=== PATIENT | male | born 1985 | race Caucasian/White ===

== ENCOUNTER 2022-10-20 06:18 | Emergency (ER) | payer BC, SELFPAY ==
[2022-10-20 06:24] VITALS: PULSE 77; RESP 18; TEMP 35.9; O2SAT 98
[2022-10-20 06:42] VITALS: BP 201/129
--- NOTE | 2022-10-20 07:01 | ED_ITS ---
HPI - General Adult General Chief complaint: GI Bleed Stated complaint: Rectal bleeding Time Seen by Provider: 10/20/22 06:38 Source: patient and family Mode of arrival: ambulatory Limitations: no limitations History of Present Illness HPI narrative: 36-year-old man with a history of significant anxiety and hypertension presents to the emergency department for evaluation of bright red blood in stools. Patient reports that 3 days ago he had been feeling a little constipated and had to strain with a bowel movement. When he went to [facility], he noted that there was some blood on the paper in a couple of drops into the stool. There was no persistent bleeding after that. He when on over the weekend to have several normal nonbloody containing bowel movements. To help combat the constipation, he increased his fiber intake. He does not take any stool softeners. Last night, he felt the urge to have a bowel movement, suspected it would be loose stool. When he had his loose stool, there was some blood around the outside of the stool, bright red blood in the bowl and blood when wiping. It was not pure blood it was mixed with stool material. He had a couple of these episodes overnight as well. There is no pain. He does not take any blood thinners. There is no lightheaded, dizziness, no history of anemia. There was no trauma nor injury. No dysuria, no prior history of GI surgeries. He has never had a colonoscopy. He does have a family history of diverticulosis in his mother and also a family history of colon polyps in his grandfather in his 70s. No joe GI cancers. He has not tried any measures to help improve his symptoms. He reports that he otherwise gets steady, regular primary care through the [facility]. He admits to significant anxiety and initially refused to have his blood pressure taken, I did ask the nurse to go back in and have this done prior to my seeing the patient, as I would need to know if he was hypotensive in the setting of a GI bleed. Past medical history is notable for hypertension and anxiety. His only home medication is lisinopril. No allergies. Denies prior surgeries. Family history notable for the diverticulosis and polyps as above, social history is negative for marijuana, alcohol or tobacco. ROS is notable for the GI symptoms as above only, otherwise denies times 12 systems. Related Data Home Medications Medication Instructions Recorded Confirmed lisinopril 30 mg tablet 30 mg PO DAILY 10/20/22 10/20/22 Allergies Allergy/AdvReac Type Severity Reaction Status Date / Time No Known Drug Allergies Allergy Verified 10/20/22 06:27 [facility] Social History Smoking Status: Unknown if ever smoked How often do you have a drink containing alcohol: never AUDIT-C Alcohol total score: 0 Non-prescribed substance use: denies use Exam Const: Vital Signs, click to edit/add: Vital Signs - 24 hr 10/20/22 06:24 10/20/22 06:42 Temperature 96.6 F L Pulse Rate [Right Pulse Oximeter] 77 Respiratory Rate 18 Blood Pressure [Ri ght Upper Arm] 201/129 H Pulse Oximetry 98 Oxygen Delivery Me thod Room Air Documenting provider has reviewed patient's vital signs: yes Common normals: healthy appearing and alert Orientation/consciousness: Yes awake Other: Anxious but redirectable. Good historian. He does bring his mother to the visit. HENMT: Common normals: normocephalic and head/scalp atraumatic Head and scalp: normocephalic and atraumatic Face and sinus: normal facial exam Mouth: oral and palatal mucosa normal Throat: posterior oropharynx normal Eye: Common normals: conjunctivae normal General eye: normal appearance of both eyes Conjunctiva: conjunctiva(e) normal Neck & C-Spine: Common normals: full ROM and no lymphadenopathy Resp: Common normals: normal respiratory effort, no use of accessory muscles and clear to auscultation bilaterally Effort & inspection: able to speak in complete sentences Auscultation: clear to auscultation bilaterally Cardio: Common normals: regular rate, regular rhythm, S1 normal heart sound and S2 normal heart sound Rate: regular rate Rhythm: regular rhythm Heart sounds: S1 normal and S2 normal GI: Common normals: Normal to inspection, nondistended, normoactive bowel sounds present, soft to palpation, non-tender, no hepatosplenomegaly and no masses Palpation: soft and no hepatosplenomegaly Rectal Exam - Male: visual inspection normal, normal sphincter tone and prostate normal Other: There is some dark red blood present in the rectal vault, no stool currently. No masses. No signs of any ulceration. I do guaiac the stool and it is expectedly positive. Extremity: Common normals: normal to inspection and normal capillary refill Neuro: Sensorium/orientation: awake and alert Speech: speech normal Motor exam: no tremor noted and no movement abnormalities noted Psych: Attitude: engaged Activity/motor behavior: appropriate eye contact Mood and affect: anxious Insight: insight good Judgement: judgment good Skin: Common normals: no rashes or lesions noted General skin exam: no rashes or lesions noted Course Vital Signs Vital signs: Initial Vital Signs Temperature 96.6 F L 10/20/22 06:24 Temperature Source Temporal Artery Scan 10/20/22 06:24 Pulse Rate 77 10/20/22 06:24 Pulse Rhythm 10/20/22 06:24 Respiratory Rate 18 10/20/22 06:24 Pulse Oximetry 98 10/20/22 06:24 Oxygen Delivery Method 10/20/22 06:24 Vital Signs Temperature 96.6 F L 10/20/22 06:24 Pulse Rate 77 10/20/22 06:24 Respiratory Rate 18 10/20/22 06:24 Pulse Oximetry 98 10/20/22 06:24 Oxygen Delivery Method 10/20/22 06:24 Temperature 96.6 F L 10/20/22 06:24 Pulse Rate 77 10/20/22 06:24 Respiratory Rate 18 10/20/22 06:24 Blood Pressure 201/129 H 10/20/22 06:42 Pulse Oximetry 98 10/20/22 06:24 Oxygen Delivery Method 10/20/22 06:24 Medical Decision Making MDM Narrative Medical decision making narrative: Differential diagnosis is wide including cancer, polyps, ulceration, inflammatory bowel disease, infection, colitis. Most likely diagnosis though is a diverticular bleed. There are no red flags like fever, tenderness, hypotension. CT scan will not likely yield etiology and does risk radiation. I recommended basic labs to look at his hemoglobin, platelet counts, white count, inflammatory marker, basic metabolic panel and INR. I expect these to be normal. Counseled patient that he needs a colonoscopy. This should be arranged within a few weeks. Will reassess when labs are back. Update: Reassess patient, he still had no further stools during his stay here. Continues to be pain-free. We reviewed plan of care, alarm symptoms. Colonoscopy is ordered. He will be contacted to schedule this outpatient. He is more than welcome to schedule this with his primary care team and clinic as well. He will need to coordinate this through his primary care provider. All questions answered. Lab Data Lab results reviewed: Yes I reviewed the patient's lab results Labs: Lab Results 10/20/22 10/20/22 10/20/22 Range/Units 07:10 07:10 07:10 WBC 6.18 (4.50-11.00) K/uL RBC 5.19 (4.30-5.90) m/uL Hgb 14.8 (13.5-17.5) gm/dL Hct 44.0 (37.0-53.0) % MCV 85 (80-100) fL MCH 29 (26-34) pg MCHC 34 (32-36) gm/dL RDW Coeff of Mitchell 11.9 (11.5-15.5) % Plt Count 266 (140-440) K/uL Neut % (Auto) 56.6 (42.0-72.0) % Lymph % (Auto) 31.2 (20-44) % Scott % (Auto) 8.3 (0.0-11.0) % Eos % (Auto) 3.2 (0.0-7.0) % Baso % (Auto) 0.5 (0.0-3.0) % Neut # (Auto) 3.50 (1.7-7.0) K/uL Lymph # (Auto) 1.93 (0.90-2.90) K/uL Scott # (Auto) 0.50 (0.00-0.90) K/UL Eos # (Auto) 0.20 (0.00-0.50) K/uL Baso # (Auto) 0.03 (0.00-0.30) K/uL INR 0.99 (0.91-1.10) Sodium 141 (135-149) mmol/L Potassium 3.3 L (3.6-5.1) mmol/L Chloride 103 (96-114) mmol/L Carbon Dioxide 30 (20-32) mmol/L BUN 11 (5-24) mg/dL Creatinine 0.8 (0.5-1.5) mg/dL Estimated GFR 119 ml/min Glucose 110 (60-115) mg/dL Calcium 9.1 (8.4-10.6) mg/dL C-Reactive Protein (0.5-1.0) mg/dL 10/20/22 Range/Units 07:10 WBC (4.50-11.00) K/uL RBC (4.30-5.90) m/uL Hgb (13.5-17.5) gm/dL Hct (37.0-53.0) % MCV (80-100) fL MCH (26-34) pg MCHC (32-36) gm/dL RDW Coeff of Mitchell (11.5-15.5) % Plt Count (140-440) K/uL Neut % (Auto) (42.0-72.0) % Lymph % (Auto) (20-44) % Scott % (Auto) (0.0-11.0) % Eos % (Auto) (0.0-7.0) % Baso % (Auto) (0.0-3.0) % Neut # (Auto) (1.7-7.0) K/uL Lymph # (Auto) (0.90-2.90) K/uL Scott # (Auto) (0.00-0.90) K/UL Eos # (Auto) (0.00-0.50) K/uL Baso # (Auto) (0.00-0.30) K/uL INR (0.91-1.10) Sodium (135-149) mmol/L Potassium (3.6-5.1) mmol/L Chloride (96-114) mmol/L Carbon Dioxide (20-32) mmol/L BUN (5-24) mg/dL Creatinine (0.5-1.5) mg/dL Estimated GFR ml/min Glucose (60-115) mg/dL Calcium (8.4-10.6) mg/dL C-Reactive Protein 2.9 H (0.5-1.0) mg/dL Discharge Plan Discharge Clinical Impression: Diverticular hemorrhage Patient Disposition: Home w/ Parent or Adult Condition: Improved Instructions: Rectal Bleeding (ED) Additional Instructions: Your story is most suspicious for a diverticular bleed. This is a common, benign condition. The only way to tell for sure is to perform a colonoscopy. This will rule out ulcers, polyps, inflammatory condition and tumors. I have placed an order for this. If you prefer, this can be done through your primary health system. He would need to call your primary care doctor for a referral. It is best done within a few weeks rather than immediately, as most of the time the bleeding does cease on its own within a few days. I would like for you to start taking a stool softener. The best choice for you is an [id number] product called Colace. It is also sold as docusate. Avoid laxatives. I would like for you to take the stool softener 1 tablet or capsule twice daily for the next week. This will reduce any straining with bowel movements. Try to pay attention to the blood in your stools. Be mindful that blood that is just a few drops into the bowl or coating the outside of the stool or just on the toilet paper is a much better prognosis than heavy blood clots or maroon stools with no fecal matter mixed in. If you start to get significantly dizzy, lightheaded or weak in the setting of your bloody stools, please come back to the emergency department. Your blood work today is reassuring. Your blood clotting cells all seem to work normally. You may resume all normal activities. I do encourage you to continue a high-fiber diet. Activity Level: No Restrictions Discharge Diet: Regular Prescriptions: No Action lisinopril 30 mg tablet 30 mg PO DAILY Stand Alone Forms: [employer] Info Instructions
--- NOTE | 2022-10-20 07:13 | ED.NURSE ---
report received, care taken over. pt resting in bed, no complaints.
[2022-10-20 07:17] LABS: Basophils Absolute Auto 0.03 K/uL (0.00-0.30); Basophils Percent Auto 0.5 % (0.0-3.0); Eosinophils Percent Auto 3.2 % (0.0-7.0); Hemoglobin* 14.8 gm/dL (13.5-17.5); Immature Granulocytes Abs Auto 0.01 K/uL (0.00-0.30); Immature Granulocytes Pct Auto 0.2 %; Lymphocytes Absolute Auto 1.93 K/uL (0.90-2.90); Lymphocytes Percent Auto 31.2 % (20-44); Mean Corpuscular HGB Conc 34 gm/dL (32-36); Mean Corpuscular Hemoglobin 29 pg (26-34); Mean Corpuscular Volume 85 fL (80-100); Monocytes Percent Auto 8.3 % (0.0-11.0); Neutrophils Percent Auto 56.6 % (42.0-72.0); Platelet Count* 266 K/uL (140-440); RDW Coefficient of Variation % 11.9 % (11.5-15.5); Red Blood Count 5.19 m/uL (4.30-5.90); White Blood Count* 6.18 K/uL (4.50-11.00)
[2022-10-20 07:18] LABS: Slide Review Reflex No
[2022-10-20 07:29] LABS: Chloride* 103 mmol/L (96-114); Potassium* 3.3 mmol/L (3.6-5.1); Sodium* 141 mmol/L (135-149)
[2022-10-20 07:32] LABS: Creatinine* 0.8 mg/dL (0.5-1.5); Estimated Glomerular Filt Rate 119 ml/min; INR 0.99 (0.91-1.10); Prothrombin Time 13.7 Seconds
[2022-10-20 07:33] LABS: Blood Urea Nitrogen* 11 mg/dL (5-24); Calcium* 9.1 mg/dL (8.4-10.6); Carbon Dioxide* 30 mmol/L (20-32); Glucose* 110 mg/dL (60-115)
[2022-10-20 07:48] LABS: C Reactive Protein* 2.9 mg/dL (0.5-1.0)
--- NOTE | 2022-10-20 08:01 | ED.NURSE ---
pt declined bp at dc
== END 2022-10-20 08:02 | disposition home or self-care (01) ==
LOC: ED 07:50
PROVIDERS: Emergency Provider Family Medicine
DX: K57.91 Diverticulosis of intestine, part unspecified, without perforation or abscess with bleeding (principal)
CPT/HCPCS: 36415; 80048; 85025; 85610; 86140; 99283

== ENCOUNTER 2022-11-10 09:58 | Outpatient (CLI) | payer OTHER, SELFPAY | END 2022-11-10 09:59 | disposition home or self-care (01) | PROVIDERS: Visit Provider Internal Medicine | DX: K62.5 Hemorrhage of anus and rectum (principal); K63.5 Polyp of colon; K62.89 Other specified diseases of anus and rectum; K57.30 Diverticulosis of large intestine without perforation or abscess without bleeding | CPT/HCPCS: 45380; 88305; J2250; J3010 ==